=== PATIENT | male | born 1940 | race African-American/Black ===

== ENCOUNTER 2021-06-30 19:57 | Inpatient (IN) | payer BC, OTHER ==
[2021-06-30] MEDS ORDERED: SODIUM CHLORIDE 1,000 ML IV STA ×3 (20:08→21:41)
[2021-06-30 20:11] VITALS: BMI 16.9
[2021-06-30] MEDS ORDERED: ACETAMINOPHEN 1000 MG/100 ML BAG IVPB ONE (20:26)
[2021-06-30] MEDS ORDERED: ACETAMINOPHEN INJECTION 100 ML IVPB ONE (20:27)
[2021-06-30 20:53] LABS: BASO % 0.2 % (0-2.0); HEMATOCRIT 36.4 % (35.4-49); HEMOGLOBIN 11.9 GM/dL (11.7-16.9); LYMPH % 23.8 % (8-40); MCHC 32.6 g/dl (32.0-35.9); MEAN CELL VOLUME 101.2 fl (80-96); MONO % 5.7 % (3.8-10.2); NEUT % 70.3 % (42.8-82.8); PLATELET COUNT 329 10^3/uL (134-434); RBC 3.59 M/mm3 (4.00-5.60); RDW 15.8 % (11.9-15.9); WHITE BLOOD COUNT 4.4 K/mm3 (4.0-10.0)
[2021-06-30 20:54] LABS: VENOUS BASE EXCESS -8.7 mmol/L (-2-2); VENOUS O2 SATURATION 76.1 % (70-80); VENOUS PCO2 42.6 mmHg (38-52); VENOUS PH 7.248 (7.310-7.410)
[2021-06-30 20:56] LABS: INR 1.19 (0.83-1.09); PROTHROMBIN TIME (PATIENT) 13.9 SEC (9.7-13.0)
[2021-06-30] MEDS ORDERED: VANCOMYCIN 1 GM PREMIX - 1 GM/200 ML BAG IVPB ONE (21:00)
[2021-06-30] MEDS ORDERED: PIPERACILLIN/TAZOB 4.5 GM 4.5 GM in DEXTROSE 5%-WATER 100 ML IVPB ONE (21:00)
[2021-06-30] MEDS ORDERED: PIPERACILLIN/TAZOB 4.5 GM 4.5 GM/100 ML BAG IVPB ONE (21:03)
[2021-06-30 21:09] LABS: CHLORIDE 110 mmol/L (98-107); SODIUM 148 mmol/L (136-145)
[2021-06-30 21:12] LABS: CALCIUM 9.1 mg/dL (8.5-10.1)
[2021-06-30 21:13] LABS: ALBUMIN 2.5 g/dl (3.4-5.0); ANION GAP 20 MMOL/L (8-16); BLOOD UREA NITROGEN 73.7 mg/dL (7-18); CO2 19 mmol/L (21-32); GLUCOSE,RANDOM 287 mg/dL (74-106)
[2021-06-30 21:16] LABS: CREATININE 2.5 mg/dL (0.55-1.3); SGOT/AST 13 U/L (15-37); SGPT/ALT 23 U/L (13-61)
[2021-06-30 21:18] LABS: BILIRUBIN,TOTAL 1.5 mg/dL (0.2-1); TOT PROT 7.6 g/dl (6.4-8.2)
[2021-06-30 21:19] LABS: ALK PHOS 69 U/L (45-117)
[2021-06-30] MEDS ORDERED: VANCOMYCIN 1 GRAM (PRE-DOCKED) 1,000 MG/250 ML BAG IVPB ONE (21:26)
[2021-06-30] MEDS ORDERED: INSULIN REGULAR HUMAN 100 UNITS/ML *VIAL IVPUSH ONE (21:34)
[2021-06-30] MEDS ORDERED: DEXTROSE 50%-WATER - 25 GM/50 ML VIAL IVPUSH ONE (21:34)
[2021-06-30] MEDS ORDERED: DEXTROSE 50%-WATER 25 GM/50 ML DISP.SYRIN ONE (21:35)
[2021-06-30] MEDS ORDERED: INSULIN REGULAR HUMAN 100 UNITS/ML *VIAL ONE (21:36)
[2021-06-30 21:38] LABS: LACTIC ACID 7.5 mmol/L (0.4-2.0)
[2021-06-30] MEDS ORDERED: LACTATED RINGERS SOLUTION 1000 ML INFUS.BAG IV ONE (21:42)
[2021-06-30] MEDS ORDERED: LACTATED RINGERS SOLUTION 1,000 ML/1,000 ML INFUS.BAG IV SCH (23:15)
[2021-07-01 01:27] LABS: CHLORIDE 115 mmol/L (98-107); SODIUM 146 mmol/L (136-145)
[2021-07-01 01:28] LABS: ANION GAP 15 MMOL/L (8-16); BLOOD UREA NITROGEN 54.1 mg/dL (7-18); CO2 16 mmol/L (21-32); GLUCOSE,RANDOM 226 mg/dL (74-106)
[2021-07-01 01:32] LABS: CREATININE 1.6 mg/dL (0.55-1.3)
[2021-07-01] MEDS: INSULIN SLIDING SCALE (NOVOLOG) 1 VIAL SQ SCH ×4 (02:03→18:43)
[2021-07-01 02:05] LABS: CALCIUM 7.1 mg/dL (8.5-10.1)
[2021-07-01 02:06] LABS: LACTIC ACID > 15.0 mmol/L (0.4-2.0)
[2021-07-01] MEDS ORDERED: PIPERACILLIN/TAZOB 2.25 GM 2.25 GM/50 ML BAG IVPB ONE ×4 (02:54→18:28)
[2021-07-01] MEDS ORDERED: PIPERACILLIN/TAZOB 2.25 GM 2.25 GM in DEXTROSE 5%-WATER - 50 ML IVPB SCH (03:00)
[2021-07-01] MEDS: PIPERACILLIN/TAZOB 2.25 GM 2.25 GM in DEXTROSE 5%-WATER - 50 ML IVPB SCH ×4 (03:11→18:43)
[2021-07-01] MEDS ORDERED: LACTATED RINGERS SOLUTION 1,000 ML/1,000 ML INFUS.BAG IV STA ×2 (04:37→05:30)
[2021-07-01] MEDS ORDERED: HEPARIN NA (PORCINE) 5,000 UNITS/ML 1ML VIAL SQ SCH (06:00)
[2021-07-01 06:27] LABS: HEMATOCRIT 16.5 % (35.4-49); MCH 33.7 pg (25.7-33.7); MCHC 33.1 g/dl (32.0-35.9); MEAN CELL VOLUME 101.8 fl (80-96); MEAN PLT VOLUME 8.7 fl (7.5-11.1); PLATELET COUNT 140 10^3/uL (134-434); RBC 1.62 M/mm3 (4.00-5.60); RDW 15.6 % (11.9-15.9); WHITE BLOOD COUNT 2.6 K/mm3 (4.0-10.0)
[2021-07-01 06:31] LABS: HEMOGLOBIN 5.5 GM/dL (11.7-16.9)
[2021-07-01 06:41] LABS: CHLORIDE 114 mmol/L (98-107); SODIUM 146 mmol/L (136-145)
[2021-07-01 06:43] LABS: ANION GAP 13 MMOL/L (8-16); BLOOD UREA NITROGEN 56.1 mg/dL (7-18); CO2 18 mmol/L (21-32)
[2021-07-01 06:44] LABS: GLUCOSE,RANDOM 199 mg/dL (74-106)
[2021-07-01 06:46] LABS: SGPT/ALT 12 U/L (13-61)
[2021-07-01 06:47] LABS: CREATININE 1.6 mg/dL (0.55-1.3); SGOT/AST 14 U/L (15-37)
[2021-07-01 06:48] LABS: BILIRUBIN,TOTAL 0.8 mg/dL (0.2-1)
[2021-07-01 07:05] LABS: ALBUMIN 1.2 g/dl (3.4-5.0); ALK PHOS 37 U/L (45-117)
[2021-07-01 07:09] LABS: BASO % 0.4 % (0-2.0); HEMATOCRIT 24.9 % (35.4-49); HEMOGLOBIN 8.5 GM/dL (11.7-16.9); LYMPH % 23.4 % (8-40); MEAN PLT VOLUME 9.6 fl (7.5-11.1); MONO % 6.2 % (3.8-10.2); PLATELET COUNT 214 10^3/uL (134-434); RBC 2.49 M/mm3 (4.00-5.60); RDW 15.4 % (11.9-15.9); WHITE BLOOD COUNT 3.9 K/mm3 (4.0-10.0)
[2021-07-01 07:15] LABS: CHLORIDE 115 mmol/L (98-107); SODIUM 145 mmol/L (136-145)
[2021-07-01 07:16] LABS: CALCIUM 7.6 mg/dL (8.5-10.1)
[2021-07-01 07:17] LABS: BLOOD UREA NITROGEN 69.1 mg/dL (7-18); CO2 25 mmol/L (21-32); GLUCOSE,RANDOM 234 mg/dL (74-106)
[2021-07-01 07:20] LABS: CREATININE 2.1 mg/dL (0.55-1.3)
[2021-07-01 07:34] LABS: ANION GAP 6 MMOL/L (8-16)
[2021-07-01 07:34] LABS: LACTIC ACID 18.6 mmol/L (0.4-2.0)
[2021-07-01] MEDS ORDERED: VANCOMYCIN 1 GM in D5W (PRE-DOCKED) 1,000 MG/250 ML IVPB SCH (10:00)
[2021-07-01] MEDS ORDERED: PT OWN MED DRAWER 7, Y5N ONE (10:01)
[2021-07-01 10:04] LABS: LACTIC ACID 3.2 mmol/L (0.4-2.0)
[2021-07-01 10:18] LABS: ANISOCYTOSIS 1+; MACROCYTOSIS 0; PLATELET ESTIMATE DECREASED
[2021-07-01] MEDS: DORZOLAMIDE 2% HCL OPHTHALMIC SOLUTION 10 ML BOTTLE OD SCH ×2 (12:28→22:04)
[2021-07-01] MEDS ORDERED: ACETAMINOPHEN 1000 MG/100 ML BAG IVPB PRN (15:08)
[2021-07-01] MEDS ORDERED: ACETAMINOPHEN INJECTION 100 ML IVPB ONE (18:28)
[2021-07-01] MEDS: SODIUM CHLORIDE 0.45% 1,000 ML IV SCH (18:44)
[2021-07-01] MEDS ORDERED: VANCOMYCIN 1 GRAM (PRE-DOCKED) 1,000 MG/250 ML BAG IVPB ONE ×2 (20:39→21:00)
[2021-07-01] MEDS: LATANOPROST 0.005% OPHTH SOLN 2.5ML BOTTLE OD SCH (22:05)
[2021-07-02] MEDS: INSULIN SLIDING SCALE (NOVOLOG) 1 VIAL SQ SCH ×3 (04:27→11:56)
[2021-07-02] MEDS ORDERED: PIPERACILLIN/TAZOB 2.25 GM 2.25 GM/50 ML BAG IVPB ONE ×3 (04:28→17:03)
[2021-07-02] MEDS: PIPERACILLIN/TAZOB 2.25 GM 2.25 GM in DEXTROSE 5%-WATER - 50 ML IVPB SCH ×3 (04:29→17:47)
[2021-07-02 08:06] LABS: SARS-CoV-2 NAA Not Detected (Not Detected)
[2021-07-02] MEDS: DORZOLAMIDE 2% HCL OPHTHALMIC SOLUTION 10 ML BOTTLE OD SCH (09:25)
[2021-07-02 09:39] LABS: HEMATOCRIT 31.3 % (35.4-49); HEMOGLOBIN 10.6 GM/dL (11.7-16.9); MCH 33.7 pg (25.7-33.7); MCHC 33.8 g/dl (32.0-35.9); MEAN CELL VOLUME 99.5 fl (80-96); PLATELET COUNT 259 10^3/uL (134-434); RBC 3.15 M/mm3 (4.00-5.60); RDW 15.4 % (11.9-15.9); WHITE BLOOD COUNT 5.6 K/mm3 (4.0-10.0)
[2021-07-02 10:34] LABS: CALCIUM 7.9 mg/dL (8.5-10.1)
[2021-07-02 10:38] LABS: CREATININE 1.2 mg/dL (0.55-1.3)
[2021-07-02 10:39] LABS: TOT PROT 5.9 g/dl (6.4-8.2)
[2021-07-02 10:40] LABS: BILIRUBIN,TOTAL 0.6 mg/dL (0.2-1)
[2021-07-02 11:00] LABS: ANISOCYTOSIS 1+; MACROCYTOSIS 0; PLATELET ESTIMATE NORMAL
[2021-07-02 11:21] LABS: ALBUMIN 1.7 g/dl (3.4-5.0)
[2021-07-02] MEDS: SODIUM CHLORIDE 0.45% 1,000 ML IV SCH (17:47)
[2021-07-03] MEDS: INSULIN SLIDING SCALE (NOVOLOG) 1 VIAL SQ SCH ×4 (02:57→22:15)
[2021-07-03] MEDS: MINERAL OIL/PET HY-PHL TOPICAL OINTMENT 454 GM JAR TP SCH ×2 (02:57→10:00)
[2021-07-03] MEDS: LATANOPROST 0.005% OPHTH SOLN 2.5ML BOTTLE OD SCH ×2 (02:58→22:55)
[2021-07-03] MEDS: DORZOLAMIDE 2% HCL OPHTHALMIC SOLUTION 10 ML BOTTLE OD SCH ×3 (02:58→22:55)
[2021-07-03] MEDS: PIPERACILLIN/TAZOB 2.25 GM 2.25 GM in DEXTROSE 5%-WATER - 50 ML IVPB SCH ×3 (07:56→18:19)
[2021-07-03] MEDS ORDERED: PIPERACILLIN/TAZOB 2.25 GM 2.25 GM/50 ML BAG IVPB ONE ×2 (08:54→18:07)
[2021-07-03 13:11] LABS: EPI CELLS >36 /uL (0-25.1); HYALINE CASTS 4 /uL (0-3.1); URINE APPEARANCE CLEAR; URINE BACTERIA 10 /uL (0-1359); URINE BILIRUBIN NEGATIVE (NEGATIVE); URINE COLOR YELLOW; URINE GLUCOSE (UA) NEGATIVE (NEGATIVE); URINE KETONE 1+ (NEGATIVE); URINE LEUK ESTERASE TRACE (NEGATIVE); URINE NITRITE NEGATIVE (NEGATIVE); URINE PROTEIN 1+ (NEGATIVE); URINE RBC 8 /uL (0-23.9); URINE WBC 78 /uL (0-25.8)
[2021-07-03 13:13] LABS: YEAST NON SEEN (NEGATIVE)
[2021-07-03] MEDS: SODIUM CHLORIDE 0.45% 1,000 ML IV SCH (18:18)
[2021-07-04] MEDS ORDERED: PIPERACILLIN/TAZOB 2.25 GM 2.25 GM/50 ML BAG IVPB ONE (02:31)
[2021-07-04] MEDS: INSULIN SLIDING SCALE (NOVOLOG) 1 VIAL SQ SCH ×5 (02:52→23:43)
[2021-07-04] MEDS: PIPERACILLIN/TAZOB 2.25 GM 2.25 GM in DEXTROSE 5%-WATER - 50 ML IVPB SCH ×3 (02:53→17:31)
[2021-07-04] MEDS ORDERED: PIPERACILLIN/TAZOBACTAM 2.25 GM VIAL IVPB ONE ×2 (09:37→17:22)
[2021-07-04] MEDS ORDERED: DEXTROSE 5%-WATER - 50 ML IVPB ONE ×2 (09:38→17:23)
[2021-07-04 10:23] LABS: BASO % 0.1 % (0-2.0); EOS % 0.7 % (0-4.5); HEMATOCRIT 29.5 % (35.4-49); LYMPH % 17.7 % (8-40); MCH 33.4 pg (25.7-33.7); MEAN CELL VOLUME 98.2 fl (80-96); MEAN PLT VOLUME 8.2 fl (7.5-11.1); MONO % 4.6 % (3.8-10.2); NEUT % 76.9 % (42.8-82.8); PLATELET COUNT 260 10^3/uL (134-434); RBC 3.01 M/mm3 (4.00-5.60); RDW 15.1 % (11.9-15.9); WHITE BLOOD COUNT 6.7 K/mm3 (4.0-10.0)
[2021-07-04] MEDS: MINERAL OIL/PET HY-PHL TOPICAL OINTMENT 454 GM JAR TP SCH (10:33)
[2021-07-04] MEDS: DORZOLAMIDE 2% HCL OPHTHALMIC SOLUTION 10 ML BOTTLE OD SCH ×2 (10:34→23:43)
[2021-07-04 10:35] LABS: ALBUMIN 1.5 g/dl (3.4-5.0); CALCIUM 7.6 mg/dL (8.5-10.1)
[2021-07-04 10:38] LABS: CREATININE 0.5 mg/dL (0.55-1.3)
[2021-07-04 10:40] LABS: BILIRUBIN,TOTAL 0.7 mg/dL (0.2-1); TOT PROT 5.3 g/dl (6.4-8.2)
[2021-07-04 10:43] LABS: BLOOD UREA NITROGEN 16.6 mg/dL (7-18)
[2021-07-04] MEDS: KCL 10 MEQ IVPB 10 MEQ/100 ML INFUS.BAG IVPB SCH ×2 (12:11→13:57)
[2021-07-04] MEDS: SODIUM CHLORIDE 0.45%/POT 20 MEQ/1,000 ML INFUS.BAG IV SCH (12:36)
[2021-07-04] MEDS: LATANOPROST 0.005% OPHTH SOLN 2.5ML BOTTLE OD SCH (23:43)
[2021-07-05] MEDS ORDERED: DEXTROSE 5%-WATER - 50 ML IVPB ONE ×3 (01:45→18:20)
[2021-07-05] MEDS ORDERED: PIPERACILLIN/TAZOBACTAM 2.25 GM VIAL IVPB ONE ×3 (01:45→18:20)
[2021-07-05] MEDS: PIPERACILLIN/TAZOB 2.25 GM 2.25 GM in DEXTROSE 5%-WATER - 50 ML IVPB SCH ×3 (02:36→18:21)
[2021-07-05] MEDS: INSULIN SLIDING SCALE (NOVOLOG) 1 VIAL SQ SCH ×2 (06:33→12:23)
[2021-07-05] MEDS: MINERAL OIL/PET HY-PHL TOPICAL OINTMENT 454 GM JAR TP SCH (09:17)
[2021-07-05] MEDS: DORZOLAMIDE 2% HCL OPHTHALMIC SOLUTION 10 ML BOTTLE OD SCH ×2 (09:17→21:33)
[2021-07-05] MEDS: SODIUM CHLORIDE 0.45%/POT 20 MEQ/1,000 ML INFUS.BAG IV SCH (12:01)
[2021-07-05] MEDS: LATANOPROST 0.005% OPHTH SOLN 2.5ML BOTTLE OD SCH (21:34)
[2021-07-06] MEDS ORDERED: DEXTROSE 5%-WATER - 50 ML IVPB ONE ×3 (01:16→16:24)
[2021-07-06] MEDS ORDERED: PIPERACILLIN/TAZOBACTAM 2.25 GM VIAL IVPB ONE ×3 (01:16→16:24)
[2021-07-06] MEDS: PIPERACILLIN/TAZOB 2.25 GM 2.25 GM in DEXTROSE 5%-WATER - 50 ML IVPB SCH ×3 (01:24→18:23)
[2021-07-06] MEDS: INSULIN SLIDING SCALE (NOVOLOG) 1 VIAL SQ SCH (06:31)
[2021-07-06 08:58] LABS: HEMATOCRIT 23.6 % (35.4-49); HEMOGLOBIN 7.9 GM/dL (11.7-16.9); MCH 33.1 pg (25.7-33.7); MCHC 33.7 g/dl (32.0-35.9); MEAN CELL VOLUME 98.3 fl (80-96); MEAN PLT VOLUME 7.9 fl (7.5-11.1); PLATELET COUNT 271 10^3/uL (134-434); RBC 2.39 M/mm3 (4.00-5.60); WHITE BLOOD COUNT 7.3 K/mm3 (4.0-10.0)
[2021-07-06 09:19] LABS: CALCIUM 7.3 mg/dL (8.5-10.1)
[2021-07-06 09:20] LABS: ALBUMIN 1.3 g/dl (3.4-5.0); BLOOD UREA NITROGEN 9.1 mg/dL (7-18)
[2021-07-06 09:23] LABS: CREATININE 0.7 mg/dL (0.55-1.3)
[2021-07-06 09:25] LABS: BILIRUBIN,TOTAL 0.5 mg/dL (0.2-1); TOT PROT 5.2 g/dl (6.4-8.2)
[2021-07-06] MEDS: MINERAL OIL/PET HY-PHL TOPICAL OINTMENT 454 GM JAR TP SCH (11:36)
[2021-07-06] MEDS: DORZOLAMIDE 2% HCL OPHTHALMIC SOLUTION 10 ML BOTTLE OD SCH ×2 (11:36→21:10)
[2021-07-06] MEDS: SODIUM CHLORIDE 0.45%/POT 20 MEQ/1,000 ML INFUS.BAG IV SCH ×2 (11:41→14:56)
[2021-07-06] MEDS: LATANOPROST 0.005% OPHTH SOLN 2.5ML BOTTLE OD SCH (21:10)
[2021-07-07] MEDS ORDERED: PIPERACILLIN/TAZOBACTAM 2.25 GM VIAL IVPB ONE ×2 (01:21→07:59)
[2021-07-07] MEDS ORDERED: DEXTROSE 5%-WATER - 50 ML IVPB ONE ×2 (01:21→08:00)
[2021-07-07] MEDS: PIPERACILLIN/TAZOB 2.25 GM 2.25 GM in DEXTROSE 5%-WATER - 50 ML IVPB SCH ×2 (01:30→10:39)
[2021-07-07] MEDS: INSULIN SLIDING SCALE (NOVOLOG) 1 VIAL SQ SCH (06:00)
[2021-07-07] MEDS ORDERED: PT OWN MED DRAWER 7, Y5N ONE (08:07)
[2021-07-07] MEDS ORDERED: PANTOPRAZOLE SODIUM 40 MG VIAL IVPUSH SCH (10:00)
[2021-07-07] MEDS: DORZOLAMIDE 2% HCL OPHTHALMIC SOLUTION 10 ML BOTTLE OD SCH ×2 (10:43→21:36)
[2021-07-07] MEDS: MINERAL OIL/PET HY-PHL TOPICAL OINTMENT 454 GM JAR TP SCH (10:43)
[2021-07-07 10:52] LABS: HEMOGLOBIN 8.5 GM/dL (11.7-16.9); MCH 32.7 pg (25.7-33.7); MCHC 33.8 g/dl (32.0-35.9); MEAN CELL VOLUME 96.5 fl (80-96); MEAN PLT VOLUME 7.5 fl (7.5-11.1); PLATELET COUNT 276 10^3/uL (134-434); RBC 2.59 M/mm3 (4.00-5.60); RDW 14.9 % (11.9-15.9); WHITE BLOOD COUNT 5.6 K/mm3 (4.0-10.0)
[2021-07-07 11:13] LABS: CALCIUM 7.5 mg/dL (8.5-10.1)
[2021-07-07 11:14] LABS: ALBUMIN 1.4 g/dl (3.4-5.0); BLOOD UREA NITROGEN 7.8 mg/dL (7-18)
[2021-07-07 11:17] LABS: CREATININE 0.6 mg/dL (0.55-1.3)
[2021-07-07 11:19] LABS: BILIRUBIN,TOTAL 0.5 mg/dL (0.2-1); TOT PROT 5.7 g/dl (6.4-8.2)
[2021-07-07 11:28] LABS: ANISOCYTOSIS 0; MACROCYTOSIS 0; PLATELET ESTIMATE NORMAL
[2021-07-07] MEDS: SODIUM CHLORIDE 0.45%/POT 20 MEQ/1,000 ML INFUS.BAG IV SCH ×2 (18:15→22:08)
[2021-07-07] MEDS ORDERED: FLU VACC QS2021-22(6MOS UP)/PF 60 MCG/0.5 ML SYRINGE IM ONE (18:56)
[2021-07-07] MEDS: LATANOPROST 0.005% OPHTH SOLN 2.5ML BOTTLE OD SCH (21:40)
[2021-07-08] MEDS: INSULIN SLIDING SCALE (NOVOLOG) 1 VIAL SQ SCH (06:48)
[2021-07-08 08:21] LABS: BASO % 0.3 % (0-2.0); EOS % 2.2 % (0-4.5); HEMATOCRIT 27.2 % (35.4-49); HEMOGLOBIN 9.3 GM/dL (11.7-16.9); LYMPH % 29.2 % (8-40); MCH 33.3 pg (25.7-33.7); MCHC 34.2 g/dl (32.0-35.9); MEAN CELL VOLUME 97.4 fl (80-96); MEAN PLT VOLUME 7.3 fl (7.5-11.1); MONO % 8.3 % (3.8-10.2); PLATELET COUNT 304 10^3/uL (134-434); RBC 2.79 M/mm3 (4.00-5.60); RDW 14.7 % (11.9-15.9); WHITE BLOOD COUNT 6.3 K/mm3 (4.0-10.0)
[2021-07-08 08:39] LABS: CALCIUM 7.7 mg/dL (8.5-10.1)
[2021-07-08 08:40] LABS: BLOOD UREA NITROGEN 7.4 mg/dL (7-18)
[2021-07-08 08:43] LABS: CREATININE 0.6 mg/dL (0.55-1.3)
[2021-07-08] MEDS: DORZOLAMIDE 2% HCL OPHTHALMIC SOLUTION 10 ML BOTTLE OD SCH ×2 (11:08→22:19)
[2021-07-08] MEDS: PANTOPRAZOLE 20 MG TABLET PO SCH (11:08)
[2021-07-08] MEDS: MINERAL OIL/PET HY-PHL TOPICAL OINTMENT 454 GM JAR TP SCH (11:08)
[2021-07-08] MEDS: LATANOPROST 0.005% OPHTH SOLN 2.5ML BOTTLE OD SCH (22:19)
[2021-07-09] MEDS: INSULIN SLIDING SCALE (NOVOLOG) 1 VIAL SQ SCH (06:09)
[2021-07-09] MEDS ORDERED: PT OWN MED DRAWER 7, Y5N ONE (09:34)
[2021-07-09] MEDS: PANTOPRAZOLE 20 MG TABLET PO SCH (09:37)
[2021-07-09] MEDS: MINERAL OIL/PET HY-PHL TOPICAL OINTMENT 454 GM JAR TP SCH (09:37)
[2021-07-09] MEDS: DORZOLAMIDE 2% HCL OPHTHALMIC SOLUTION 10 ML BOTTLE OD SCH ×2 (09:38→21:47)
[2021-07-09] MEDS: LATANOPROST 0.005% OPHTH SOLN 2.5ML BOTTLE OD SCH (21:47)
[2021-07-10] MEDS: INSULIN SLIDING SCALE (NOVOLOG) 1 VIAL SQ SCH (06:30)
[2021-07-10] MEDS: PANTOPRAZOLE 20 MG TABLET PO SCH (10:47)
[2021-07-10] MEDS: MULTIVIT-MINERALS ORAL LIQUID PO SCH (10:47)
[2021-07-10] MEDS: MINERAL OIL/PET HY-PHL TOPICAL OINTMENT 454 GM JAR TP SCH (10:48)
[2021-07-10] MEDS: DORZOLAMIDE 2% HCL OPHTHALMIC SOLUTION 10 ML BOTTLE OD SCH ×2 (10:48→22:10)
[2021-07-10] MEDS: LATANOPROST 0.005% OPHTH SOLN 2.5ML BOTTLE OD SCH (22:10)
[2021-07-11] MEDS: INSULIN SLIDING SCALE (NOVOLOG) 1 VIAL SQ SCH (06:59)
[2021-07-11 07:31] LABS: BASO % 0.6 % (0-2.0); EOS % 1.2 % (0-4.5); HEMATOCRIT 26.1 % (35.4-49); HEMOGLOBIN 9.2 GM/dL (11.7-16.9); LYMPH % 27.8 % (8-40); MCHC 35.1 g/dl (32.0-35.9); MEAN CELL VOLUME 96.9 fl (80-96); MEAN PLT VOLUME 6.9 fl (7.5-11.1); MONO % 9.7 % (3.8-10.2); NEUT % 60.7 % (42.8-82.8); PLATELET COUNT 348 10^3/uL (134-434); WHITE BLOOD COUNT 6.5 K/mm3 (4.0-10.0)
[2021-07-11 07:58] LABS: ALBUMIN 1.5 g/dl (3.4-5.0); CALCIUM 7.9 mg/dL (8.5-10.1)
[2021-07-11 08:00] LABS: BILIRUBIN,TOTAL 0.4 mg/dL (0.2-1)
[2021-07-11 08:01] LABS: CREATININE 0.7 mg/dL (0.55-1.3)
[2021-07-11 08:04] LABS: TOT PROT 6.5 g/dl (6.4-8.2)
[2021-07-11] MEDS: MULTIVIT-MINERALS ORAL LIQUID PO SCH (09:55)
[2021-07-11] MEDS: DORZOLAMIDE 2% HCL OPHTHALMIC SOLUTION 10 ML BOTTLE OD SCH ×2 (09:56→22:51)
[2021-07-11] MEDS: MINERAL OIL/PET HY-PHL TOPICAL OINTMENT 454 GM JAR TP SCH (09:56)
[2021-07-11] MEDS: PANTOPRAZOLE 20 MG TABLET PO SCH (09:56)
[2021-07-11] MEDS: LATANOPROST 0.005% OPHTH SOLN 2.5ML BOTTLE OD SCH (22:52)
[2021-07-12] MEDS: INSULIN SLIDING SCALE (NOVOLOG) 1 VIAL SQ SCH (06:47)
[2021-07-12] MEDS: MINERAL OIL/PET HY-PHL TOPICAL OINTMENT 454 GM JAR TP SCH (09:58)
[2021-07-12] MEDS: MULTIVIT-MINERALS ORAL LIQUID PO SCH (09:58)
[2021-07-12] MEDS: DORZOLAMIDE 2% HCL OPHTHALMIC SOLUTION 10 ML BOTTLE OD SCH ×2 (09:59→21:35)
[2021-07-12] MEDS: PANTOPRAZOLE 20 MG TABLET PO SCH (09:59)
[2021-07-12] MEDS: LATANOPROST 0.005% OPHTH SOLN 2.5ML BOTTLE OD SCH (21:35)
[2021-07-13] MEDS: INSULIN SLIDING SCALE (NOVOLOG) 1 VIAL SQ SCH (06:38)
[2021-07-13] MEDS ORDERED: OXYMETAZOLINE 0.05% NASAL SOLUTION 15 ML BOTTLE NS ONE (08:52)
[2021-07-13] MEDS: MINERAL OIL/PET HY-PHL TOPICAL OINTMENT 454 GM JAR TP SCH (09:32)
[2021-07-13] MEDS: MULTIVIT-MINERALS ORAL LIQUID PO SCH (09:33)
[2021-07-13] MEDS: PANTOPRAZOLE 20 MG TABLET PO SCH (09:33)
[2021-07-13] MEDS: DORZOLAMIDE 2% HCL OPHTHALMIC SOLUTION 10 ML BOTTLE OD SCH ×2 (09:33→21:21)
[2021-07-13] MEDS: LATANOPROST 0.005% OPHTH SOLN 2.5ML BOTTLE OD SCH (21:21)
[2021-07-14] MEDS: INSULIN SLIDING SCALE (NOVOLOG) 1 VIAL SQ SCH (06:02)
[2021-07-14 11:08] LABS: BASO % 0.7 % (0-2.0); HEMOGLOBIN 8.5 GM/dL (11.7-16.9); LYMPH % 15.7 % (8-40); MCH 32.9 pg (25.7-33.7); MCHC 33.9 g/dl (32.0-35.9); MEAN CELL VOLUME 96.9 fl (80-96); MEAN PLT VOLUME 7.2 fl (7.5-11.1); MONO % 9.6 % (3.8-10.2); PLATELET COUNT 421 10^3/uL (134-434); RBC 2.58 M/mm3 (4.00-5.60); RDW 14.8 % (11.9-15.9); WHITE BLOOD COUNT 10.1 K/mm3 (4.0-10.0)
[2021-07-14 11:27] LABS: CALCIUM 8.2 mg/dL (8.5-10.1)
[2021-07-14 11:28] LABS: ALBUMIN 1.6 g/dl (3.4-5.0); BLOOD UREA NITROGEN 29.2 mg/dL (7-18)
[2021-07-14 11:32] LABS: BILIRUBIN,TOTAL 1.5 mg/dL (0.2-1); TOT PROT 7.2 g/dl (6.4-8.2)
[2021-07-14] MEDS: DORZOLAMIDE 2% HCL OPHTHALMIC SOLUTION 10 ML BOTTLE OD SCH ×2 (11:55→21:24)
[2021-07-14] MEDS: PANTOPRAZOLE 20 MG TABLET PO SCH (11:56)
[2021-07-14] MEDS: MULTIVIT-MINERALS ORAL LIQUID PO SCH (11:56)
[2021-07-14] MEDS: MINERAL OIL/PET HY-PHL TOPICAL OINTMENT 454 GM JAR TP SCH (11:56)
[2021-07-14] MEDS: AMINO ACIDS 4.25%/D5W 1,000 ML IV SCH (17:22)
[2021-07-14] MEDS: LATANOPROST 0.005% OPHTH SOLN 2.5ML BOTTLE OD SCH (21:25)
[2021-07-15] MEDS: AMINO ACIDS 4.25%/D5W 1,000 ML IV SCH ×3 (04:50→15:02)
[2021-07-15] MEDS: INSULIN SLIDING SCALE (NOVOLOG) 1 VIAL SQ SCH (06:04)
[2021-07-15] MEDS: PANTOPRAZOLE 20 MG TABLET PO SCH (09:17)
[2021-07-15] MEDS: DORZOLAMIDE 2% HCL OPHTHALMIC SOLUTION 10 ML BOTTLE OD SCH ×2 (09:17→22:38)
[2021-07-15] MEDS: MINERAL OIL/PET HY-PHL TOPICAL OINTMENT 454 GM JAR TP SCH (09:17)
[2021-07-15] MEDS: MULTIVIT-MINERALS ORAL LIQUID PO SCH (09:17)
[2021-07-15] MEDS ORDERED: FAT EMULSIONS 20% 250 ML PREMIX INFUS.BAG IV SCH (22:00)
[2021-07-15] MEDS ORDERED: ACETAMINOPHEN 1000 MG/100 ML BAG IVPB ONE (22:07)
[2021-07-15] MEDS: LATANOPROST 0.005% OPHTH SOLN 2.5ML BOTTLE OD SCH (22:38)
[2021-07-15] MEDS: FAT EMULSION/OLIVE/SOY/PHOSPHO 250 ML IV SCH (22:39)
[2021-07-16] MEDS: INSULIN SLIDING SCALE (NOVOLOG) 1 VIAL SQ SCH (06:45)
[2021-07-16] MEDS: AMINO ACIDS 4.25%/D5W 1,000 ML IV SCH ×2 (06:45→14:22)
[2021-07-16] MEDS: PANTOPRAZOLE 20 MG TABLET PO SCH (10:27)
[2021-07-16] MEDS: DORZOLAMIDE 2% HCL OPHTHALMIC SOLUTION 10 ML BOTTLE OD SCH ×2 (10:27→22:07)
[2021-07-16] MEDS: MINERAL OIL/PET HY-PHL TOPICAL OINTMENT 454 GM JAR TP SCH (10:28)
[2021-07-16] MEDS: MULTIVIT INJ. ADULT COMBO WITH VIT K 1 COMBO 10 ML VIAL IV SCH (12:28)
[2021-07-16] MEDS: LATANOPROST 0.005% OPHTH SOLN 2.5ML BOTTLE OD SCH (22:07)
[2021-07-16] MEDS: FAT EMULSION/OLIVE/SOY/PHOSPHO 250 ML IV SCH (22:41)
[2021-07-17] MEDS: AMINO ACIDS 4.25%/D5W 1,000 ML IV SCH ×2 (02:25→15:36)
[2021-07-17] MEDS ORDERED: INSULIN (NOVOLOG) ASPART 100 UNITS/ML 10ML VIAL ONE (05:58)
[2021-07-17] MEDS: INSULIN SLIDING SCALE (NOVOLOG) 1 VIAL SQ SCH (06:24)
[2021-07-17 07:38] LABS: CALCIUM 7.8 mg/dL (8.5-10.1)
[2021-07-17 07:39] LABS: BLOOD UREA NITROGEN 42.2 mg/dL (7-18)
[2021-07-17 07:42] LABS: CREATININE 0.7 mg/dL (0.55-1.3)
[2021-07-17 07:43] LABS: BILIRUBIN,TOTAL 0.3 mg/dL (0.2-1); TOT PROT 6.2 g/dl (6.4-8.2)
[2021-07-17 08:05] LABS: ALBUMIN 1.2 g/dl (3.4-5.0)
[2021-07-17 08:16] LABS: BASO % 0.5 % (0-2.0); EOS % 0.1 % (0-4.5); HEMATOCRIT 22.5 % (35.4-49); HEMOGLOBIN 7.9 GM/dL (11.7-16.9); LYMPH % 17.2 % (8-40); MCH 33.8 pg (25.7-33.7); MCHC 35.1 g/dl (32.0-35.9); MEAN CELL VOLUME 96.3 fl (80-96); MEAN PLT VOLUME 7.6 fl (7.5-11.1); MONO % 5.8 % (3.8-10.2); NEUT % 76.4 % (42.8-82.8); PLATELET COUNT 330 10^3/uL (134-434); RBC 2.34 M/mm3 (4.00-5.60); RDW 13.9 % (11.9-15.9); WHITE BLOOD COUNT 9.5 K/mm3 (4.0-10.0)
[2021-07-17] MEDS: MINERAL OIL/PET HY-PHL TOPICAL OINTMENT 454 GM JAR TP SCH (09:47)
[2021-07-17] MEDS: DORZOLAMIDE 2% HCL OPHTHALMIC SOLUTION 10 ML BOTTLE OD SCH ×2 (09:48→23:00)
[2021-07-17] MEDS: PANTOPRAZOLE 20 MG TABLET PO SCH (09:48)
[2021-07-17] MEDS: MULTIVIT INJ. ADULT COMBO WITH VIT K 1 COMBO 10 ML VIAL IV SCH (15:36)
[2021-07-17] MEDS ORDERED: PT OWN MED DRAWER 7, Y5N ONE (21:13)
[2021-07-17] MEDS: FAT EMULSION/OLIVE/SOY/PHOSPHO 250 ML IV SCH (21:48)
[2021-07-17] MEDS: LATANOPROST 0.005% OPHTH SOLN 2.5ML BOTTLE OD SCH (21:55)
[2021-07-18] MEDS: AMINO ACIDS 4.25%/D5W 1,000 ML IV SCH ×2 (01:21→04:55)
[2021-07-18] MEDS: INSULIN SLIDING SCALE (NOVOLOG) 1 VIAL SQ SCH (06:38)
[2021-07-18] MEDS: PANTOPRAZOLE 20 MG TABLET PO SCH (10:56)
[2021-07-18] MEDS: DORZOLAMIDE 2% HCL OPHTHALMIC SOLUTION 10 ML BOTTLE OD SCH ×2 (10:56→21:37)
[2021-07-18] MEDS: MINERAL OIL/PET HY-PHL TOPICAL OINTMENT 454 GM JAR TP SCH (10:57)
[2021-07-18] MEDS ORDERED: PT OWN MED DRAWER 7, Y5N ONE ×2 (12:46→21:35)
[2021-07-18] MEDS: POTASSIUM CHLORIDE 20 MEQ in AMINO ACIDS 4.25%/D5W 1,000 ML IV SCH (13:23)
[2021-07-18] MEDS: MULTIVIT INJ. ADULT COMBO WITH VIT K 1 COMBO 10 ML VIAL IV SCH (13:23)
[2021-07-18] MEDS: LATANOPROST 0.005% OPHTH SOLN 2.5ML BOTTLE OD SCH (21:37)
[2021-07-18] MEDS: FAT EMULSION/OLIVE/SOY/PHOSPHO 250 ML IV SCH (21:37)
[2021-07-19] MEDS: POTASSIUM CHLORIDE 20 MEQ in AMINO ACIDS 4.25%/D5W 1,000 ML IV SCH (02:00)
[2021-07-19] MEDS: INSULIN SLIDING SCALE (NOVOLOG) 1 VIAL SQ SCH (06:31)
[2021-07-19 08:21] LABS: ALBUMIN 1.2 g/dl (3.4-5.0); CALCIUM 7.7 mg/dL (8.5-10.1); MAGNESIUM 1.7 mg/dL (1.8-2.4)
[2021-07-19 08:22] LABS: BLOOD UREA NITROGEN 31.2 mg/dL (7-18)
[2021-07-19 08:24] LABS: CREATININE 0.5 mg/dL (0.55-1.3)
[2021-07-19 08:26] LABS: BILIRUBIN,TOTAL 0.3 mg/dL (0.2-1); TOT PROT 6.3 g/dl (6.4-8.2)
[2021-07-19] MEDS: PANTOPRAZOLE 20 MG TABLET PO SCH (10:30)
[2021-07-19] MEDS: MINERAL OIL/PET HY-PHL TOPICAL OINTMENT 454 GM JAR TP SCH (10:38)
[2021-07-19] MEDS: DORZOLAMIDE 2% HCL OPHTHALMIC SOLUTION 10 ML BOTTLE OD SCH ×2 (10:38→21:23)
[2021-07-19] MEDS ORDERED: MAGNESIUM SULF 50% (8.12 MEQ/2 ML-1 GM VIAL) IVPB ONE (11:24)
[2021-07-19] MEDS ORDERED: POTASSIUM CHLORIDE 20 MEQ in AMINO ACIDS 4.25%/D5W 1,000 ML IV SCH (11:24)
[2021-07-19] MEDS: KCL 10 MEQ IVPB 10 MEQ/100 ML INFUS.BAG IVPB SCH ×3 (12:32→14:49)
[2021-07-19] MEDS: POTASSIUM CHLORIDE 40 MEQ in AMINO ACIDS 4.25%/D5W 2,000 ML IV SCH (17:17)
[2021-07-19] MEDS: MULTIVIT INJ. ADULT COMBO WITH VIT K 1 COMBO 10 ML VIAL IV SCH (17:18)
[2021-07-19] MEDS: LATANOPROST 0.005% OPHTH SOLN 2.5ML BOTTLE OD SCH (21:23)
[2021-07-19] MEDS: FAT EMULSION/OLIVE/SOY/PHOSPHO 250 ML IV SCH (21:26)
[2021-07-20] MEDS: INSULIN SLIDING SCALE (NOVOLOG) 1 VIAL SQ SCH (06:20)
[2021-07-20] MEDS ORDERED: PT OWN MED DRAWER 7, Y5N ONE ×2 (09:06→20:59)
[2021-07-20] MEDS: PANTOPRAZOLE 20 MG TABLET PO SCH (12:45)
[2021-07-20] MEDS: MINERAL OIL/PET HY-PHL TOPICAL OINTMENT 454 GM JAR TP SCH (12:46)
[2021-07-20] MEDS: DORZOLAMIDE 2% HCL OPHTHALMIC SOLUTION 10 ML BOTTLE OD SCH ×2 (12:47→21:24)
[2021-07-20] MEDS: POTASSIUM CHLORIDE 40 MEQ in AMINO ACIDS 4.25%/D5W 2,000 ML IV SCH (16:11)
[2021-07-20] MEDS: MULTIVIT INJ. ADULT COMBO WITH VIT K 1 COMBO 10 ML VIAL IV SCH (16:11)
[2021-07-20] MEDS: LATANOPROST 0.005% OPHTH SOLN 2.5ML BOTTLE OD SCH (21:24)
[2021-07-20] MEDS: FAT EMULSION/OLIVE/SOY/PHOSPHO 250 ML IV SCH (21:30)
[2021-07-21] MEDS ORDERED: ACETAMINOPHEN 1000 MG/100 ML BAG IVPB ONE (04:02)
[2021-07-21] MEDS: INSULIN SLIDING SCALE (NOVOLOG) 1 VIAL SQ SCH (06:27)
[2021-07-21 08:21] LABS: ALBUMIN 1.3 g/dl (3.4-5.0); BLOOD UREA NITROGEN 24.5 mg/dL (7-18); MAGNESIUM 1.7 mg/dL (1.8-2.4)
[2021-07-21 08:24] LABS: CREATININE 0.7 mg/dL (0.55-1.3)
[2021-07-21 08:26] LABS: BILIRUBIN,TOTAL 0.4 mg/dL (0.2-1); HEMATOCRIT 23.4 % (35.4-49); HEMOGLOBIN 8.1 GM/dL (11.7-16.9); MCH 32.4 pg (25.7-33.7); MCHC 34.5 g/dl (32.0-35.9); MEAN CELL VOLUME 93.9 fl (80-96); MEAN PLT VOLUME 7.4 fl (7.5-11.1); PLATELET COUNT 353 10^3/uL (134-434); RDW 14.4 % (11.9-15.9); TOT PROT 6.8 g/dl (6.4-8.2); WHITE BLOOD COUNT 10.3 K/mm3 (4.0-10.0)
[2021-07-21 09:41] LABS: ANISOCYTOSIS 1+; MACROCYTOSIS 0; PLATELET ESTIMATE NORMAL; TARGET CELLS 1+; TEAR DROP CELLS 1+; TOXIC GRANULATION 1+
[2021-07-21] MEDS: PANTOPRAZOLE 20 MG TABLET PO SCH (09:53)
[2021-07-21] MEDS ORDERED: MAGNESIUM SULF 50% (8.12 MEQ/2 ML-1 GM VIAL) IVPB ONE (10:00)
[2021-07-21] MEDS: DORZOLAMIDE 2% HCL OPHTHALMIC SOLUTION 10 ML BOTTLE OD SCH ×2 (11:02→21:44)
[2021-07-21] MEDS: MINERAL OIL/PET HY-PHL TOPICAL OINTMENT 454 GM JAR TP SCH (11:02)
[2021-07-21] MEDS: MULTIVIT INJ. ADULT COMBO WITH VIT K 1 COMBO 10 ML VIAL IV SCH (11:59)
[2021-07-21] MEDS: POTASSIUM CHLORIDE 20 MEQ in AMINO ACIDS 4.25%/D5W 2,000 ML IV SCH (12:00)
[2021-07-21] MEDS ORDERED: ALBUTEROL SO4 2.5/IPRATROPIUM 0.5 INH SOL 3 ML VIAL.NEB. NEB PRN (21:40)
[2021-07-21] MEDS: LATANOPROST 0.005% OPHTH SOLN 2.5ML BOTTLE OD SCH (21:44)
[2021-07-21] MEDS: FAT EMULSION/OLIVE/SOY/PHOSPHO 250 ML IV SCH (21:44)
[2021-07-22] MEDS: SCOPOLAMINE HYDROBROMIDE 1 PATCH PATCH.TD72 TD SCH
[2021-07-22] MEDS: INSULIN SLIDING SCALE (NOVOLOG) 1 VIAL SQ SCH (06:30)
[2021-07-22 08:28] LABS: HEMATOCRIT 23.3 % (35.4-49); HEMOGLOBIN 7.8 GM/dL (11.7-16.9); MCH 31.8 pg (25.7-33.7); MCHC 33.4 g/dl (32.0-35.9); MEAN CELL VOLUME 95.2 fl (80-96); MEAN PLT VOLUME 7.6 fl (7.5-11.1); PLATELET COUNT 375 10^3/uL (134-434); RBC 2.45 M/mm3 (4.00-5.60); RDW 14.3 % (11.9-15.9); WHITE BLOOD COUNT 16.4 K/mm3 (4.0-10.0)
[2021-07-22 09:32] LABS: ALBUMIN 1.4 g/dl (3.4-5.0); BILIRUBIN,TOTAL 0.3 mg/dL (0.2-1); BLOOD UREA NITROGEN 44.2 mg/dL (7-18); CALCIUM 8.3 mg/dL (8.5-10.1); CREATININE 0.8 mg/dL (0.55-1.3)
[2021-07-22 09:54] LABS: ANISOCYTOSIS 1+; MACROCYTOSIS 1+; PLATELET ESTIMATE NORMAL; TOXIC GRANULATION 2+
[2021-07-22] MEDS: DORZOLAMIDE 2% HCL OPHTHALMIC SOLUTION 10 ML BOTTLE OD SCH ×2 (09:56→21:26)
[2021-07-22] MEDS: PANTOPRAZOLE 20 MG TABLET PO SCH (09:56)
[2021-07-22] MEDS: MINERAL OIL/PET HY-PHL TOPICAL OINTMENT 454 GM JAR TP SCH (09:56)
[2021-07-22] MEDS ORDERED: POTASSIUM CHLORIDE 20 MEQ in AMINO ACIDS 4.25%/D5W 1,000 ML IV SCH (11:30)
[2021-07-22] MEDS ORDERED: AMINO ACIDS 4.25%/D5W 1,000 ML IV SCH (12:30)
[2021-07-22] MEDS: MULTIVIT INJ. ADULT COMBO WITH VIT K 1 COMBO 10 ML VIAL IV SCH ×2 (12:33→12:36)
[2021-07-22] MEDS: POTASSIUM CHLORIDE 20 MEQ in AMINO ACIDS 4.25%/D5W 2,000 ML IV SCH (12:34)
[2021-07-22] MEDS: AMINO ACIDS 4.25%/D5W 1,000 ML IV SCH (12:36)
[2021-07-22] MEDS ORDERED: PT OWN MED DRAWER 7, Y5N ONE ×2 (20:58→21:02)
[2021-07-22] MEDS: FAT EMULSION/OLIVE/SOY/PHOSPHO 250 ML IV SCH (21:25)
[2021-07-22] MEDS: LATANOPROST 0.005% OPHTH SOLN 2.5ML BOTTLE OD SCH (21:26)
[2021-07-23] MEDS: AMINO ACIDS 4.25%/D5W 1,000 ML IV SCH ×2 (05:10→23:18)
[2021-07-23] MEDS: INSULIN SLIDING SCALE (NOVOLOG) 1 VIAL SQ SCH (06:10)
[2021-07-23 07:04] LABS: HEMATOCRIT 23.5 % (35.4-49); MCH 32.4 pg (25.7-33.7); MCHC 34.1 g/dl (32.0-35.9); MEAN CELL VOLUME 94.8 fl (80-96); PLATELET COUNT 351 10^3/uL (134-434); RBC 2.48 M/mm3 (4.00-5.60); RDW 14.7 % (11.9-15.9); WHITE BLOOD COUNT 8.3 K/mm3 (4.0-10.0)
[2021-07-23 07:29] LABS: ALBUMIN 1.3 g/dl (3.4-5.0); BLOOD UREA NITROGEN 43.4 mg/dL (7-18); CALCIUM 8.2 mg/dL (8.5-10.1); MAGNESIUM 2.1 mg/dL (1.8-2.4)
[2021-07-23 07:30] LABS: CREATININE 0.7 mg/dL (0.55-1.3)
[2021-07-23 07:31] LABS: BILIRUBIN,TOTAL 0.3 mg/dL (0.2-1); TOT PROT 6.6 g/dl (6.4-8.2)
[2021-07-23 09:10] LABS: ANISOCYTOSIS 0; MACROCYTOSIS 0; PLATELET ESTIMATE NORMAL
[2021-07-23] MEDS: DORZOLAMIDE 2% HCL OPHTHALMIC SOLUTION 10 ML BOTTLE OD SCH ×2 (09:42→22:23)
[2021-07-23] MEDS: PANTOPRAZOLE 20 MG TABLET PO SCH (09:42)
[2021-07-23] MEDS: MINERAL OIL/PET HY-PHL TOPICAL OINTMENT 454 GM JAR TP SCH (09:42)
[2021-07-23] MEDS: MULTIVIT INJ. ADULT COMBO WITH VIT K 1 COMBO 10 ML VIAL IV SCH (18:49)
[2021-07-23] MEDS ORDERED: PT OWN MED DRAWER 7, Y5N ONE (20:24)
[2021-07-23] MEDS: LATANOPROST 0.005% OPHTH SOLN 2.5ML BOTTLE OD SCH (22:23)
[2021-07-23] MEDS: FAT EMULSION/OLIVE/SOY/PHOSPHO 250 ML IV SCH (23:17)
[2021-07-24] MEDS: INSULIN SLIDING SCALE (NOVOLOG) 1 VIAL SQ SCH (08:13)
[2021-07-24] MEDS: PANTOPRAZOLE 20 MG TABLET PO SCH (10:46)
[2021-07-24] MEDS: MINERAL OIL/PET HY-PHL TOPICAL OINTMENT 454 GM JAR TP SCH (10:56)
[2021-07-24] MEDS: DORZOLAMIDE 2% HCL OPHTHALMIC SOLUTION 10 ML BOTTLE OD SCH ×2 (10:57→22:51)
[2021-07-24] MEDS: AMINO ACIDS 4.25%/D5W 1,000 ML IV SCH (12:03)
[2021-07-24] MEDS: MULTIVIT INJ. ADULT COMBO WITH VIT K 1 COMBO 10 ML VIAL IV SCH (12:04)
[2021-07-24] MEDS: LATANOPROST 0.005% OPHTH SOLN 2.5ML BOTTLE OD SCH (22:51)
[2021-07-24] MEDS: FAT EMULSION/OLIVE/SOY/PHOSPHO 250 ML IV SCH (22:58)
[2021-07-25] MEDS: INSULIN SLIDING SCALE (NOVOLOG) 1 VIAL SQ SCH (07:42)
[2021-07-25] MEDS: SCOPOLAMINE HYDROBROMIDE 1 PATCH PATCH.TD72 TD SCH (07:43)
[2021-07-25] MEDS: AMINO ACIDS 4.25%/D5W 1,000 ML IV SCH (09:48)
[2021-07-25] MEDS: DORZOLAMIDE 2% HCL OPHTHALMIC SOLUTION 10 ML BOTTLE OD SCH (09:49)
[2021-07-25] MEDS: PANTOPRAZOLE 20 MG TABLET PO SCH (09:49)
[2021-07-25] MEDS: MINERAL OIL/PET HY-PHL TOPICAL OINTMENT 454 GM JAR TP SCH (09:49)
[2021-07-25] MEDS: MULTIVIT INJ. ADULT COMBO WITH VIT K 1 COMBO 10 ML VIAL IV SCH (12:32)
[2021-07-25 15:31] VITALS: PULSE 96
[2021-07-26 05:37] VITALS: BP 84/67; TEMP 96.8
[2021-07-26] MEDS: AMINO ACIDS 4.25%/D5W 1,000 ML IV SCH (06:57)
[2021-07-26] MEDS: FAT EMULSION/OLIVE/SOY/PHOSPHO 250 ML IV SCH (06:58)
[2021-07-26] MEDS: DORZOLAMIDE 2% HCL OPHTHALMIC SOLUTION 10 ML BOTTLE OD SCH (06:59)
[2021-07-26] MEDS: LATANOPROST 0.005% OPHTH SOLN 2.5ML BOTTLE OD SCH (07:00)
[2021-07-26] MEDS: INSULIN SLIDING SCALE (NOVOLOG) 1 VIAL SQ SCH (07:00)
== END 2021-07-26 12:48 | disposition expired | DRG 871 ==
LOC: JER 19:57 → JERBED 07-01 00:33 → J4W 07-04 07:15
PROVIDERS: ADMIT Internal Medicine; ATTEND Family Medicine
DX: A41.9 Sepsis, unspecified organism (principal); J96.01 Acute respiratory failure with hypoxia; G93.41 Metabolic encephalopathy; J69.0 Pneumonitis due to inhalation of food and vomit; E43 Unspecified severe protein-calorie malnutrition; N17.9 Acute kidney failure, unspecified; E87.2 Acidosis; Z68.1 Body mass index [BMI] 19.9 or less, adult; N39.0 Urinary tract infection, site not specified; R64 Cachexia; I10 Essential (primary) hypertension; E78.5 Hyperlipidemia, unspecified; E11.9 Type 2 diabetes mellitus without complications; D64.9 Anemia, unspecified; E87.5 Hyperkalemia; E87.6 Hypokalemia; R13.10 Dysphagia, unspecified; E86.0 Dehydration; N31.9 Neuromuscular dysfunction of bladder, unspecified; R41.82 Altered mental status, unspecified; I95.9 Hypotension, unspecified; N18.9 Chronic kidney disease, unspecified
CPT/HCPCS: 36415; 70450-TC; 71045-TC-FY; 71250-TC; 74176-TC; 74230-TC-FY; 76775-TC; 80048; 80053; 81003; 82436; 82550; 82570; 82607; 82728; 82746; 82803; 82962; 83540; 83550; 83605; 83735; 84133; 84300; 84484; 85025; 85027; 85610; 85730; 86850; 86900; 86901; 87040; 87077; 87086; 87804; 87807; 90686; 92611-GN; 93005; 93010; 97162-GP; 99285-25; C9803; G0008; J0131; J3480; U0003; U0005